=== PATIENT | female | born 1990 | race Caucasian/White ===

== ENCOUNTER 2017-09-12 12:48 | Emergency (ER) | payer OTHER ==
[~2017-09-12] VITALS: Ht 157.5 cm; Wt 54.4 kg
[~2017-09-12 12:48] MED LIST: ALBU90OI INH; CETI5 PO; DIPH50 PO; HYOS.125; Imitrex25 MG PO; PANT20 PO; PANT40; PROC5 PO; PROM25 PO; Prednisone50 MG PO; SUCR1; SUCR1 PO; Zofran Odt4 MG SL; Zofran4 MG PO
[2017-09-12] MEDS ORDERED: LIDO700A20 TOP (13:52)
[2017-09-12] MEDS ORDERED: IBUP600 PO (13:52)
== END 2017-09-12 13:56 | disposition home or self-care (01) ==
LOC: ER 12:48
DX: S42.034A Nondisplaced fracture of lateral end of right clavicle, initial encounter for closed fracture (principal); Z88.0 Allergy status to penicillin; Z88.5 Allergy status to narcotic agent; Z88.8 Allergy status to other drugs, medicaments and biological substances; W01.0XXA Fall on same level from slipping, tripping and stumbling without subsequent striking against object, initial encounter
CPT/HCPCS: 29105; 73030; 99283-25

== ENCOUNTER → 2018-07-05 | Outpatient (CLI) | payer OTHER ==
[~2018-07-05] MED LIST changes: +IBUP600 PO; +LIDO700A20 TOP
[2018-07-06 11:13] LABS: Candida species (DNA Probe) Negative (NEGATIVE); G. vaginalis (DNA Probe) Negative (NEGATIVE); T. vaginalis (DNA Probe) Negative (NEGATIVE)
[2018-07-09 15:07] LABS: HPV 16 Negative (Negative); HPV 18 Negative (Negative); HPV OTHER HR TYPES Negative (Negative)
== END ==
LOC: LAB SHORT 09:30 → LAB 09:30
PROVIDERS: Nurse Practitioner Family
DX: Z12.4 Encounter for screening for malignant neoplasm of cervix (principal); N89.8 Other specified noninflammatory disorders of vagina
CPT/HCPCS: 87480; 87510; 87624; 87660; G0145

== ENCOUNTER 2018-11-03 12:54 | Emergency (ER) | payer OTHER ==
[~2018-11-03] VITALS: Ht 165.1 cm; Wt 46.3 kg
[2018-11-03] MEDS ORDERED: ONDA4 PO (13:19)
[2018-11-03 13:46] LABS: BASOPHILS ABSOLUTE AUTO 0.02 K/mm3 (0.00-0.23); BASOPHILS PERCENT AUTO 0 % (0-2); EOSINOPHILS ABSOLUTE AUTO 0.03 K/mm3 (0.00-0.68); EOSINOPHILS PERCENT AUTO 0 % (0-6); Hematocrit 35.8 % (33.0-51.0); Hemoglobin 11.9 g/dL (11.5-16.0); IMMATURE GRAN ABSOLUTE AUTO 0.04 K/mm3 (0.00-0.10); IMMATURE GRAN PERCENT AUTO 0 % (0-1); LYMPHOCYTES ABSOLUTE AUTO 1.79 K/mm3 (0.84-5.20); LYMPHOCYTES PERCENT AUTO 16 % (21-46); MONOCYTES ABSOLUTE AUTO 0.89 K/mm3 (0.16-1.47); MONOCYTES PERCENT AUTO 8 % (4-13); Mean Corpuscular HGB 30.7 pg (26.0-34.0); Mean Corpuscular HGB Conc 33.2 g/dL (31.5-36.5); Mean Corpuscular Volume 92 fL (80-100); Mean Platelet Volume 9.5 fL (9.1-12.4); NEUTROPHILS ABSOLUTE AUTO 8.18 K/mm3 (1.96-9.15); NEUTROPHILS PERCENT AUTO 75 % (41-73); Platelet Count 262 K/mm3 (150-400); RDW Coefficient Variation 12.4 % (11.7-14.2); RDW Standard Deviation 41.8 fL (35.1-46.3); Red Blood Cell Count 3.88 M/mm3 (3.80-5.20); White Blood Cell Count 10.95 K/mm3 (4.00-11.30)
[2018-11-03 14:06] LABS: Alanine Aminotransfer (ALT/SGP 19 U/L (12-78); Albumin/Globulin Ratio 1.3 (0.8-1.8); Alk Phos 63 U/L (50-136); Anion Gap 10 mmol/L (6-16); Aspartate Aminotrans (AST/SGOT 19 U/L (12-37); Bilirubin, Total 0.5 mg/dL (0.1-1.0); Blood Urea Nitrogen 10 mg/dL (8-24); Bun/Creatinine Ratio 17.4 (12.0-20.0); CO2, Blood 22 mmol/L (21-32); Calcium, Blood 8.4 mg/dL (8.5-10.1); Chloride, Blood 107 mmol/L (98-108); Creatinine, Blood 0.57 mg/dL (0.40-1.00); Globulin, Blood 3.1 g/dL (2.2-4.0); Glomerular Filtration Rate >60 (60-); Glucose, Blood 97 mg/dL (70-99); Potassium, Blood 2.8 mmol/L (3.5-5.5); Sodium, Blood 139 mmol/L (136-145); Total Protein, Blood 7.1 g/dL (6.4-8.2)
[2018-11-03] MEDS ORDERED: ALBU90OI INH (17:35)
[2018-11-03] MEDS ORDERED: HYDHCL25 PO (17:35)
== END 2018-11-03 18:00 | disposition home or self-care (01) ==
LOC: ER 12:54
PROVIDERS: Physician Assistant
DX: J45.909 Unspecified asthma, uncomplicated (principal); R07.89 Other chest pain; Z88.0 Allergy status to penicillin; Z88.5 Allergy status to narcotic agent; Z88.8 Allergy status to other drugs, medicaments and biological substances; F17.200 Nicotine dependence, unspecified, uncomplicated
CPT/HCPCS: 71046; 80053; 84484; 84702; 85025; 85379; 93005; 93010; 94640; 99285-25

== ENCOUNTER 2019-04-02 12:33 | Emergency (ER) | payer OTHER ==
[~2019-04-02] VITALS: Ht 162.6 cm; Wt 48.5 kg
[~2019-04-02 12:33] MED LIST changes: +HYDHCL25 PO; +ONDA4 PO
[2019-04-02] MEDS ORDERED: Robaxin-750750 MG PO (16:20)
== END 2019-04-02 16:33 | disposition home or self-care (01) ==
LOC: ER 12:33
DX: S16.1XXA Strain of muscle, fascia and tendon at neck level, initial encounter (principal); S00.33XA Contusion of nose, initial encounter; S60.221A Contusion of right hand, initial encounter; Z88.0 Allergy status to penicillin; F41.9 Anxiety disorder, unspecified; Y04.2XXA Assault by strike against or bumped into by another person, initial encounter
CPT/HCPCS: 70450; 73130; 99284-25

== ENCOUNTER 2020-04-10 13:23 | Day surgery (SDC) | payer OTHER ==
[~2020-04-10] VITALS: Ht 162.6 cm; Wt 50.0 kg
[~2020-04-10 13:23] MED LIST changes: +ESCI10 PO; +FAMO20 PO; +FLUTICASONE PRO16 GM; +Flonase 0.05% N16 GM; +LAMO100 PO; +Lexapro5 MG PO; +QVAR REDIHALE10.6 G3 IH; +Robaxin-750750 MG PO
[2020-04-10] MEDS ORDERED: BUPR100 (13:43)
[2020-04-10] MEDS ORDERED: Dicyclomine HCl10 MG (13:44)
--- NOTE | 2020-04-10 14:52 | NUR ---
04/10/20 1452 Nava Sharma NO PEDAL PULSES ASSESSED, NO CAP REFILL ASSESSED.
== END 2020-04-10 15:41 | disposition home or self-care (01) ==
LOC: ORSCSDS 13:23
PROVIDERS: Internal Medicine Gastroenterology
PROC: 0DBK8ZX Excision of Ascending Colon, Via Natural or Artificial Opening Endoscopic, Diagnostic (ICD-10-PCS; principal; 2020-04-10 14:45)
DX: R19.4 Change in bowel habit (principal); Z80.0 Family history of malignant neoplasm of digestive organs; D12.2 Benign neoplasm of ascending colon; K64.8 Other hemorrhoids; Z79.899 Other long term (current) drug therapy
CPT/HCPCS: 88305; J2704; J7120